=== PATIENT | male | born 1990 | race Caucasian/White ===

== ENCOUNTER 2017-12-10 17:06 | Emergency (ER) | payer SELFPAY ==
--- NOTE | 2017-12-10 18:30 | EDM.PDOC ---
ED HPI GENERAL MEDICAL PROBLEM - General Chief Complaint: ENT Problem Stated Complaint: TOOTH PAIN Time Seen by Provider: 12/10/17 18:17 Source of Information: Reports: Patient History Limitations: Reports: No Limitations - History of Present Illness INITIAL COMMENTS - FREE TEXT/NARRATIVE: History of present illness: []Patient has a plate put in his right lower jaw in [place] 2 years ago and states he was sleeping on his stomach awoke with right jaw pain in the area of the plate. Also has a history of grinding his teeth. Patient also states that his right tonsil feels swollen and his face feels swollen. He denies any trauma, fevers, sore throat, ear pain, sinus pain or any other recent illnesses. Patient states that he feels like his right lower teeth are pointed inward. Patient is requesting pain meds we can go back to work Review of systems: As per history of present illness and below otherwise all systems reviewed and negative. Past medical history: As per history of present illness and as reviewed below otherwise noncontributory. Surgical history: As per history of present illness and as reviewed below otherwise noncontributory. Social history: No reported history of drug or alcohol abuse. Family history: As per history of present illness and as reviewed below otherwise noncontributory. Physical exam: General: Well developed, well nourished in NAD HEENT: Atraumatic, normocephalic, pupils reactive, negative for conjunctival pallor or scleral icterus, mucous membranes moist, throat clear, no tonsillar swelling or exudate, neck supple, nontender, trachea midline. No obvious facial swelling, no malocclusion on observation Lungs: Clear to auscultation, breath sounds equal bilaterally, chest nontender. Heart: S1S2, regular, negative for clicks, rubs, or JVD. Abdomen: Soft, nondistended, nontender. Negative for masses or hepatosplenomegaly. Negative for costovertebral tenderness. Pelvis: Stable nontender. Genitourinary: Deferred. Rectal: Deferred. Extremities: Atraumatic, negative for cords or calf pain. Neurovascular unremarkable. Neuro: Awake, alert, oriented. Cranial nerves II through XII unremarkable. Cerebellum unremarkable. Motor and sensory unremarkable throughout. Exam nonfocal. Diagnostics: [] Therapeutics: [] Impression: []Jaw pain Plan: []Diclofenac, follow-up with [facility] Definitive disposition and diagnosis as appropriate pending reevaluation and review of above. 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 Right Gums Pain Score (Numeric/FACES): 7 - Related Data Allergies Allergy/AdvReac Type Severity Reaction Status Date / Time amoxicillin Allergy Other Verified 12/10/17 17:47 Penicillins Allergy Other Verified 12/10/17 17:47 Home Meds: Home Meds Ibuprofen 200 mg PO Q12HR PRN 12/10/17 [History] Past Medical History HEENT History: Reports: Other (See Below) Other HEENT History: has bad tooth, has not seen dentist Cardiovascular History: Reports: Hypertension Other Cardiovascular History: has been told he has had elevated bp in past, has not seen a provider for this Neurological History: Reports: Head Trauma, Other (See Below) Other Neuro History: states had a work accident where he suffered head trauma, had a concussion and stitches face - Infectious Disease History Infectious Disease History: Reports: Chicken Pox Social & Family History - Family History Family Medical History: Noncontributory Immunologic: Reports: None - Tobacco Use Smoking Status *Q: Current Every Day Smoker Years of Tobacco use: 8 Packs/Tins Daily: 1 Used Tobacco, but Quit: No Second Hand Smoke Exposure: Yes - Caffeine Use Caffeine Use: Reports: Soda - Recreational Drug Use Recreational Drug Use: No ED ROS ENT - Review of Systems Review Of Systems: See Below (The history of present illness) ED EXAM, ENT - Physical Exam Exam: See Below (See history of present illness) Course - Vital Signs Last Recorded V/S: Last Vital Signs Temp 97.0 F 12/10/17 17:38 Pulse 108 H 12/10/17 17:38 Resp 20 12/10/17 17:38 BP 170/100 H 12/10/17 17:38 Pulse Ox 97 12/10/17 17:38 Departure - Departure Time of Disposition: 18:29 Disposition: Home, Self-Care 01 Condition: Good Clinical Impression: Jaw pain - Discharge Information Referrals: PCP,Katja [Primary Care Provider] - Raman Hope DDS [Physician] - (Next available appointment) Additional Instructions: The following information is given to patients seen in the emergency department who are being discharged to home. This information is to outline your options for follow-up care. We provide all patients seen in our emergency department with a follow-up referral. The need for follow-up, as well as the timing and circumstances, are variable depending upon the specifics of your emergency department visit. If you don't have a primary care physician on staff, we will provide you with a referral. We always advise you to contact your personal physician following an emergency department visit to inform them of the circumstance of the visit and for follow-up with them and/or the need for any referrals to a consulting specialist. The emergency department will also refer you to a specialist when appropriate. This referral assures that you have the opportunity for follow-up care with a specialist. All of these measure are taken in an effort to provide you with optimal care, which includes your follow-up. Under all circumstances we always encourage you to contact your private physician who remains a resource for coordinating your care. When calling for follow-up care, please make the office aware that this follow-up is from your recent emergency room visit. If for any reason you are refused follow-up, please contact the [facility] Emergency Department at and asked to speak to the emergency department charge nurse. Diclofenac for pain, ice to jaw follow-up with Dr. Moran next available appointment
== END 2017-12-10 18:47 | disposition home or self-care (01) ==
LOC: MW.ED 17:06
DX: R68.84 Jaw pain (principal); I10 Essential (primary) hypertension; F17.210 Nicotine dependence, cigarettes, uncomplicated; Z88.0 Allergy status to penicillin; Z88.1 Allergy status to other antibiotic agents
CPT/HCPCS: 99282; 99283